=== PATIENT | female | born 1945 | race Caucasian/White ===

== ENCOUNTER → 2016-11-24 | Day surgery (SDC) | payer OTHER, MEDICARE ==
[~2016-11-24] VITALS: Ht 167.6 cm; Wt 104.3 kg
[~2016-11-24] MED LIST: ASPIRIN EC81 M1 PO; AVAPRO150 M1 PO; CLONIDINE HCL0.1 MG PO; LEXAPRO5 M1 PO; MELATONIN3 M4 PO; METFORMIN HCL1000 M2 PO; PRAVASTATIN SOD80 M2 PO; PROAIR HFA8.5 GM; TOPROL XL50 M1 PO; TRAMADOL HCL50 M1 PO; TRIAMTERENE
--- NOTE | 2016-11-24 09:29 | Operative Report ---
See Addendum Operative/Inv Procedure Report Surgery Date: 11/24/16 Name of Procedure: 1. Exam under anesthesia 2. Injection of 100 units of Botox into levator muscle/ chemical denervation of anal sphincters Pre-Operative Diagnosis: Animus causing chronic unrelenting rectal pain Post-Operative Diagnosis: Same Estimated Blood Loss: scant Surgeon/Glove Operator: SENAIT CALLAHAN JR, DO Anesthesia: local monitored anesthesi, block Monitors: Per routine Specimens: None Complications: None Condition: Good Operative Indication: This is a 71-year-old female with chronic severe rectal pain. Patient has had any different treatments for this pain and has seen multiple different specialists. The more common causes of rectal pain have been excluded. At times it appears she has coccydynia but more recently her exam findings and symptoms are consistent with levator ani spasm. This showed today she presents for denervation of the levator ani in hopes this will improve her pain Operative/Procedure Note Note: The patient didn't enema prior to coming to [facility]. She was taken to the operating room and placed in the supine position on the operating room table. She received IV sedation and was converted to lithotomy position in [facility]. The perineum was prepped and draped in usual fashion and then an anal block was performed. Block was performed using 0.5% Marcaine with epinephrine and a total of 30 mL was injected. Next gentle digital exam was performed. An bimanual exam was performed. There appeared to be a fullness on the right side anterior and deep to the rectal wall. A Fansler operating proctoscope was placed in the anal canal. The patient was noted to have both internal and external hemorrhoids but no evidence of, fissure, polyp, tumor, inflammation or thrombosis was evident. The Botox had been previously mixed 100 units in 2.5 mL. Approximately 0.8 mL was injected into the belly of the levator in the posterior midline, and then approximately point 0.8 mL's was injected into the biliary muscle on the right side and the left side. All 100 units were injected. At this point we may last inspection for bleeding and there was none. The retractors were removed the perineum was cleansed and dried. The patient was converted to supine position and then taken the recovery area in good condition. At the end of this procedure all needle sponges and measurements were accounted for. Findings: Fullness right anterior pelvis - we will obtain pelvic MRI Discharge Disposition: PACU
== END ==
LOC: STS 01:41
DX: K60.1 Chronic anal fissure (principal); K59.4 Anal spasm; K64.8 Other hemorrhoids; I10 Essential (primary) hypertension; E11.9 Type 2 diabetes mellitus without complications; Z79.84 Long term (current) use of oral hypoglycemic drugs; E78.5 Hyperlipidemia, unspecified; R33.9 Retention of urine, unspecified; J44.9 Chronic obstructive pulmonary disease, unspecified; I73.9 Peripheral vascular disease, unspecified; Z87.891 Personal history of nicotine dependence
CPT/HCPCS: J0585; J2250